=== PATIENT | female | born 1980 | race African-American/Black ===

== ENCOUNTER 2016-10-29 10:29 | Inpatient (IN) | payer OTHER ==
[~2016-10-29] VITALS: Ht 157.5 cm; Wt 64.6 kg
[2016-10-29] MEDS ORDERED: IBUP800T23 PO (10:53)
[2016-11-03] MEDS ORDERED: INSULIN HUMAN REGULAR 1,000 UNITS/10 ML VIAL SQ PRN (05:45)
[2016-11-03] MEDS ORDERED: METOPROLOL TARTRATE 25 MG TAB PO PRN (05:45)
[2016-11-03] MEDS ORDERED: SODIUM CHLORID 0.9% 500 ML IV SCH (05:45)
[2016-11-03] MEDS ORDERED: SODIUM CHLORIDE 0.9% INJ 100 ML ONE (05:59)
[2016-11-03] MEDS ORDERED: GENTAMICIN IV PRN (06:00)
[2016-11-03] MEDS ORDERED: SODIUM CHLORIDE 0.9% IV PRN (06:00)
[2016-11-03] MEDS ORDERED: CLINDAMYCIN 600 MG/NS 100 ML IV PRN ×2 (06:00)
[2016-11-03] MEDS: LACTATED RINGER'S 1000 ML IV SCH (06:09)
[2016-11-03 06:13] VITALS: BP 102/73; PULSE 60; RESP 16; TEMP 97.8; O2SAT 100
[2016-11-03] MEDS ORDERED: FAMOTIDINE 20 MG/2 ML VIAL ONE (07:06)
[2016-11-03] MEDS ORDERED: MICROFIBRILLAR COLLAGEN HEMOSTAT 1 GM PKT ONE (07:09)
[2016-11-03] MEDS ORDERED: GELATIN POWDER 1 GM PACKET ONE (07:10)
[2016-11-03] MEDS ORDERED: ceFAZolin INJ 1,000 MG VIAL ONE (07:10)
[2016-11-03] MEDS ORDERED: VASOPRESSIN INJ 20 UNITS/ML VIAL ONE (07:10)
[2016-11-03] MEDS ORDERED: SODIUM CHLOR 0.9% 250 ML INJ 250 ML ONE (07:10)
[2016-11-03] MEDS ORDERED: ACETAMINOPHEN 1000 MG/100 ML VIAL IV ONE (07:16)
[2016-11-03] MEDS ORDERED: DICLOFENAC SODIUM 37.5 MG/ML VIAL IV PUSH ONE (07:16)
[2016-11-03] MEDS ORDERED: MIDAZOLAM HCL 2 MG/2 ML VIAL ONE (07:22)
[2016-11-03] MEDS ORDERED: DEXAMETHASONE SOD PHOS 4 MG/ML VIAL ONE (07:22)
[2016-11-03] MEDS ORDERED: oxyCODONE/ACETAMINOPHEN 10 MG/325 MG TAB PO PRN (09:45)
[2016-11-03] MEDS ORDERED: LORazepam 0.5 MG TAB PO PRN (09:45)
[2016-11-03] MEDS ORDERED: ONDANSETRON HCL 4 MG/2 ML VIAL IV PUSH PRN (09:45)
[2016-11-03] MEDS ORDERED: diphenhydrAMINE HCL 50 MG/ML VIAL IV PRN ×2 (09:45)
[2016-11-03] MEDS ORDERED: oxyCODONE/ACETAMINOPHEN 5 MG/325 MG TAB PO PRN (09:45)
[2016-11-03] MEDS ORDERED: SODIUM CHLORIDE 0.9% FLUSH 5 ML FLUSH IVF PRN (09:45)
[2016-11-03] MEDS ORDERED: NALOXONE HCL 0.4 MG/ML AMP IV PRN (09:45)
[2016-11-03] MEDS ORDERED: ONDANSETRON ODT 4 MG TAB SL PRN (09:45)
[2016-11-03] MEDS ORDERED: ZOLPIDEM TARTRATE 5 MG TAB PO PRN (09:45)
[2016-11-03] MEDS ORDERED: diphenhydrAMINE HCL 25 MG CAP PO PRN ×2 (09:45)
[2016-11-03] MEDS ORDERED: MORPHINE SULFATE 30 MG/30 ML PCA IV SCH (09:45)
[2016-11-03] MEDS ORDERED: hydrOXYzine HCL 25 MG TAB PO PRN (09:45)
--- NOTE | 2016-11-03 09:49 | HHI.PR ---
Immediate Post Op Note Procedure Date: Nov 03, 2016 Pre Op Diagnosis: (1) Premenopausal menorrhagia (2) Uterine leiomyoma (3) Dyspareunia in female (4) Pelvic pain Post Op Diagnosis: (1) S/P total abdominal hysterectomy (2) Premenopausal menorrhagia (3) Uterine leiomyoma (4) Dyspareunia in female (5) Pelvic pain Surgeon: Oneyda Clark Captain Waiter(s): Neha staff Procedure: exploratory laparotomy, total abdominal hysterectomy, right salpingo- oophorectomy, left salpingectomy Findings: enlarged irregular multi-fibroid uterus, approx 16 week size; large posterior pedunculated fibroid attached to colon (superficially); right broad ligament fibroid involving right ovary and fallopian tube; normal cervix Complications: right broad ligament fibroid attached to right adnexa leading to right oophorectomy Specimen(s) removed: uterus, cervix, right fallopian tube, right ovary, left fallopian tube Estimated blood loss: 350 mL Anesthesia: General Drains: None Fluids: 2700 mL IVF Patient to: PACU Patient Condition: Good Oneyda Clark MD Nov 03, 2016 09:49
[2016-11-03] MEDS ORDERED: PILL SPLITTER OTHER PRN (10:00)
[2016-11-03] MEDS ORDERED: ACETAMINOPHEN 1000 MG/100 ML VIAL IV SCH ×2 (10:00→13:00)
[2016-11-03] MEDS ORDERED: DO NOT ADM ANY ANTICOAGULANT DRUGS XX PRN (10:00)
[2016-11-03] MEDS ORDERED: LACTATED RINGER'S 1000 ML INJ 1,000 ML IV ONE (10:11)
[2016-11-03] MEDS ORDERED: ONDANSETRON HCL 4 MG/2 ML VIAL IV PUSH ONE (10:11)
[2016-11-03] MEDS ORDERED: NEOSTIGMINE 3 MG/3 ML SYR IV ONE (10:11)
[2016-11-03] MEDS ORDERED: PROPOFOL 200 MG/20 ML AMP IV ONE (10:11)
[2016-11-03] MEDS: LACTATED RINGER'S 1000 ML INJ 1,000 ML IV SCH ×2 (10:25→21:37)
[2016-11-03] MEDS ORDERED: fentaNYL CITRATE 250 MCG/5 ML AMP ONE (10:28)
[2016-11-03] MEDS ORDERED: *MEPERIDINE 25 MG INJ VIAL PERIprocedural Use ONLY ONE (10:45)
[2016-11-03 12:40] VITALS: BP 97/66; PULSE 82; RESP 16; TEMP 97.7
[2016-11-03] MEDS ORDERED: KETOROLAC TROMETHAMINE 30 MG/ML (IVP) VIAL IV PUSH SCH (13:00)
[2016-11-03 13:53] LABS: RAPID PLASMA REAGIN SCREEN NON-REACTIVE (NON-REACTVE)
[2016-11-03] MEDS: PCA - TOTAL MG MORPHINE DELIVERED PER SHIFT SCH ×2 (14:00→22:00)
[2016-11-03 16:05] VITALS: BP 88/58; PULSE 78; RESP 16; TEMP 98.5; O2SAT 100
[2016-11-03 19:15] VITALS: BP 98/63; PULSE 86; RESP 18; TEMP 98.2; O2SAT 96
[2016-11-03] MEDS: SODIUM CHLORIDE 0.9% FLUSH 5 ML FLUSH IVF SCH (21:00)
[2016-11-03] MEDS: ACETAMINOPHEN 1000 MG/100 ML VIAL IV SCH (21:36)
[2016-11-03] MEDS: KETOROLAC TROMETHAMINE 30 MG/ML (IVP) VIAL IV PUSH SCH (21:36)
[2016-11-03] MEDS: DOCUSATE SODIUM 50 MG/SENNA 8.6 MG TAB PO SCH (21:36)
[2016-11-04] VITALS: BP 79/50; PULSE 90; RESP 16; TEMP 98.4; O2SAT 96
[2016-11-04 04:02] VITALS: BP 85/60; PULSE 80; RESP 16; TEMP 98.4; O2SAT 95
[2016-11-04] MEDS: ACETAMINOPHEN 1000 MG/100 ML VIAL IV SCH (04:04)
[2016-11-04] MEDS: KETOROLAC TROMETHAMINE 30 MG/ML (IVP) VIAL IV PUSH SCH (04:04)
[2016-11-04 05:08] LABS: AUTOMATED NEUTROPHIL # 7.1 TH/MM3 (1.8-7.7); BASOPHIL % 0.2 % (0.0-2.0); EOSINOPHIL % 0.1 % (0.0-4.0); HEMATOCRIT 28.2 % (35.0-46.0); HEMO FLAGS DIFF FINAL; LYMPH % 27.7 % (9.0-44.0); MEAN CELL VOLUME 83.6 FL (80.0-100.0); MEAN CORPUSCULAR HEMOGLOBIN 28.7 PG (27.0-34.0); MEAN CORPUSCULAR HGB CONC 34.3 % (32.0-36.0); MONO % 5.9 % (0.0-8.0); NEUT % 66.1 % (16.0-70.0); PLATELET COUNT 296 TH/MM3 (150-450); RED BLOOD COUNT 3.37 MIL/MM3 (4.00-5.30); RED CELL DISTRIBUTION WIDTH 15.2 % (11.6-17.2); WHITE BLOOD COUNT 10.7 TH/MM3 (4.0-11.0)
[2016-11-04] MEDS: LACTATED RINGER'S 1000 ML IV SCH (05:45)
[2016-11-04] MEDS: PCA - TOTAL MG MORPHINE DELIVERED PER SHIFT SCH (06:00)
[2016-11-04 08:00] VITALS: BP 107/65; PULSE 81; RESP 16; TEMP 98.4
--- NOTE | 2016-11-04 08:33 | HHI.PR ---
Subjective Remarks Doing well, pain is well controlled, tolerating clears. Has not yet been up to shower but voided this morning. Objective Vital Signs Vital Signs Date Time Temp Pulse Resp B/P Pulse Ox O2 Delivery O2 Flow Rate FiO2 11/04/16 06:00 16 11/04/16 04:02 98.4 80 16 85/60 95 11/04/16 00:00 98.4 90 16 79/50 96 11/03/16 22:00 16 11/03/16 19:15 98.2 86 18 98/63 96 11/03/16 16:05 98.5 78 16 88/58 100 11/03/16 14:00 16 11/03/16 12:40 97.7 82 16 97/66 11/03/16 12:15 75 16 104/70 98 Nasal Cannula 2 11/03/16 12:00 97.6 72 16 102/68 98 Nasal Cannula 2 11/03/16 11:45 73 15 101/65 97 Nasal Cannula 2 11/03/16 11:30 97.2 74 15 105/66 97 Nasal Cannula 2 11/03/16 11:15 71 15 104/69 97 Nasal Cannula 2 11/03/16 11:00 96.5 70 14 103/67 97 Nasal Cannula 2 11/03/16 10:45 78 13 102/64 96 Nasal Cannula 2 11/03/16 10:30 96.3 82 13 100/66 95 Nasal Cannula 2 11/03/16 10:25 15 11/03/16 10:15 84 12 98/65 100 Nasal Cannula 3 11/03/16 10:00 96.0 89 10 94/62 99 Nasal Cannula 3 I/O 11/03/16 11/03/16 11/03/16 11/04/16 11/04/16 11/04/16 07:00 15:00 23:00 07:00 15:00 23:00 Intake Total 2850 ml 1699 ml Output Total 610 ml 250 ml 2200 ml Balance 2240 ml -250 ml -501 ml Intake IV Total 150 ml 1699 ml Other 2700 ml Output Urine Total 260 ml 250 ml 2200 ml Estimated Blood Loss 350 ml Result Diagram: 11/04/16 0430 Objective Remarks Chest is clear, regular rate and rhythm. Abdomen is soft and non-distended. Bandage removed. Incision is clean and dry. Steri-strips removed. Ext no CCE. A/P Assessment and Plan Post Op Day 1 Doing well; advance diet, if tolerates diet & pain well controlled on oral meds ok to d/c to home later today. Return to office in one to two weeks for wound check. postop instructions given Oneyda Clark MD Nov 04, 2016 08:33
[2016-11-04] MEDS ORDERED: SENN1TAB PO (08:35)
[2016-11-04] MEDS ORDERED: OXYC1TAB36 PO (08:35)
[2016-11-04] MEDS ORDERED: IBUP-232 PO (08:35)
--- NOTE | 2016-11-04 08:40 | HHI.DS ---
Discharge Summary Admission Date Nov 03, 2016 at 05:23 Discharge Date: Nov 04, 2016 Admitting Diagnosis premenopausal menorrhagia enlarged multi-fibroid uterus dyspareunia pelvic pain in female (1) S/P total abdominal hysterectomy Diagnosis: Principal (2) Premenopausal menorrhagia Diagnosis: Principal (3) Uterine leiomyoma Diagnosis: Principal (4) Dyspareunia in female Diagnosis: Principal (5) Pelvic pain Diagnosis: Principal Procedures exam under anesthesia total abdominal hysterectomy right salpingo-oophorectomy left salpingectomy Brief History 36 yo with history of increasingly heavy painful cycles and anemia requiring IV iron transfusions. On imaging enlarged multi-fibroid uterus visualized. Pt desired definitive surgical management. CBC/BMP: 11/04/16 0430 Significant Findings Laboratory Tests Test 11/04/16 04:30 Red Blood Count 3.37 MIL/MM3 (4.00-5.30) Hemoglobin 9.7 GM/DL (11.6-15.3) Hematocrit 28.2 % (35.0-46.0) PE at Discharge NAD A&O x 3 CTA b/l no wheeze RRR no murmur soft, NTND, +BS incision c/d/i no c/c/e x 4 Hospital Course Pt had uncomplicated operative course, did well overnight POD#0 and by POD#1 was ambulating, voiding, tolerating diet. Once pain was well controlled on oral medications and pt was meeting all d/c criteria pt was discharged to home with office f/u in 1-2 weeks. Pt Condition on Discharge: Good Discharge Disposition: Discharge Home Discharge Instructions DIET: Follow Instructions for: As Tolerated, No Restrictions Activities you can perform: Partial Weight Bearing, Shower Only-No Bath, Pelvic Rest Activities to avoid: Strenuous Activity, Driving (for 2 weeks), Sexual Activity Oneyda Clark MD Nov 04, 2016 08:40
[2016-11-04] MEDS: SODIUM CHLORIDE 0.9% FLUSH 5 ML FLUSH IVF SCH (09:00)
[2016-11-04] MEDS ORDERED: IBUPROFEN 600 MG TAB PO PRN (09:45)
[2016-11-04] MEDS ORDERED: oxyCODONE/ACETAMINOPHEN 5 MG/325 MG TAB PO SCH (10:00)
[2016-11-04] MEDS ORDERED: IBUPROFEN 600 MG TAB PO SCH (10:00)
[2016-11-04] MEDS: DOCUSATE SODIUM 50 MG/SENNA 8.6 MG TAB PO SCH (10:01)
--- NOTE | 2016-11-06 10:07 | MP ---
cc: RAJ ROMAN M.D. DATE OF SURGERY: 11/03/2016 DATE OF : 1980 PREOPERATIVE DIAGNOSIS 1. Premenopausal menorrhagia 2. Enlarged multi fibroid uterus. 3. Dyspareunia. 4. Chronic pelvic pain. POSTOPERATIVE DIAGNOSIS 1. Premenopausal menorrhagia 2. Enlarged multi fibroid uterus. 3. Dyspareunia. 4. Chronic pelvic pain. 5. Postop day number zero. INDICATIONS Jyoti Randall is a 36-year-old 2, para 0-2-0-2 who has a history of worsening severely heavy and painful menstrual cycles as well as development of new pelvic pain and dyspareunia over the past few years. On imaging she had a diffusely enlarged multi fibroid uterus and she was symptomatic of anemia requiring iron transfusions despite medical management. Due to this she desired surgical management with hysterectomy. SURGERY PREFORMED: 1. Exploratory laparotomy 2. Total abdominal hysterectomy 3. Right salpingo-oophorectomy 4. Left salpingectomy. SURGEON Raj Roman MD. ANESTHESIA: General. ESTIMATED BLOOD LOSS 350 ml IV FLUID PLACEMENT: 2700 ml. URINE OUTPUT: 110 mls clear urine draining in the Chan bag at the end of the procedure. FINDINGS: Intraoperative findings include an enlarged 16 weeks size broad and irregularly shaped multi fibroid uterus, large pedunculated fibroid off the posterior wall was attached superficially to the colon. Right broad ligament fibroid involving the right adnexa and was adherent to the right ovary leading to its removal. The left ovary was within normal limits. Bilateral fallopian tubes had changes consistent with history of bilateral tubal ligation. Normal external genitalia , normal cervix. SPECIMEN Uterus, cervix, right ovary, right fallopian tube, left ovary. COMPLICATIONS Include a large broad ligament fibroid involving the right ovary leading to its removal. COUNTS: Counts of sponge, lap, instrument, and needle correct x2 at the conclusion of procedure. PROPHYLAXIS: SCDs were on and functioning throughout the entire case. Due to the patient's penicillin allergy, clindamycin and gentamicin IV were given preoperatively. PROCEDURE IN DETAIL After reviewing the informed consent the patient was taken to the operating suite where a time-out was performed to identify the patient, the planned procedure and any known allergies to drugs or drug products. The patient was placed in dorsal supine position and general anesthesia was administered without difficulty and found to be adequate. Abdomen and perineum were prepped and draped in normal sterile fashion. Chan catheter was placed using sterile technique. Pfannenstiel type skin incision was made with the scalpel, carried down to underlying layer of fascia with the Bovie. Fascia was incised in midline and incision was extended laterally with sharp dissection using Pedroza scissors. The superior aspect of the fascial incision was elevated with Connie clamps. Rectus muscles were dissected off sharply. Kochers then moved inferiorly and rectus muscles were again dissected off the fascia sharply with Pedroza scissors. Rectus muscles were in the midline. Peritoneum was identified, entered bluntly. Incision was extended superiorly and inferiorly with good visualization of intra-abdominal contents. Sterile moist lap sponges were used to pack the bowel out of the operative field. The self-retaining O'Giovanni-O'Lindo retractor was placed. Attention was turned first to the right round ligament which was elevated, doubly suture ligated with 0 Vicryl and divided. Metzenbaums scissors were used to develop a bladder flap anteriorly. A large right broad ligament fibroid was identified at this point it involved not only the broad ligament but also the right adnexa. Despite thorough dissection the right ovary was unable to be . A non-vascular space was found in the right broad ligament, this was entered sharply allowing delineation of the right infundibulopelvic ligament. Two curved Gabbie clamps were used to doubly clamped the right infundibulopelvic ligament. The vascular pedicle was divided and doubly suture ligated with 0 Vicryl with excellent hemostasis noted. Ovary and fallopian tube were on the specimen side. Additional delicate dissection of the mesosalpinx was performed to separate the fibroid from the rest of the pelvic peritoneum. It was gently dissected away from the right pelvic sidewall allowing visualization of the right ureter which was deepen and away from the operative field. Attention was then turned to the left round ligament which was elevated, doubly suture ligated with 0 Vicryl, and divided. Metzenbaum scissors were then used to open the mesosalpinx overlying the anterior uterus to develop a bladder flap anteriorly. A clear space was found in the broad ligament beneath the left infundibulopelvic ligament, this was entered sharply and two curved Gabbie clamps were used to doubly clamp the left utero-ovarian ligament allowing the left ovary to remain on its vascular pedicle and separate from the uterus. The pedicles was then divided and doubly suture ligated with 0 Vicryl. Excellent hemostasis was noted. The left fallopian tube was then elevated a Yosi clamp, clamped inferiorly with Cate clamp, and amputated from its vascular pedicle. Pedicle was then doubly suture ligated with 0 Vicryl with excellent hemostasis. Using a series of curved Gabbie clamps the uterine vasculature was then clamped, cut and suture ligated down to and beneath the level of the uterine cervix bilaterally using 0 Vicryl. Once the level of the cervix was reached and clamps had been placed bilaterally, Maxime scissors were used to amputate the specimen, which was then sent off the field for pathologic evaluation. Vaginal cuff was closed in a locked layer of #1 Vicryl, then a second running layer was placed for additional support. Uterosacral ligaments were incorporated into the closure. Irrigation with suction was performed. Excellent hemostasis was noted. Shreyas was placed over the sutured vaginal cuff. The retractor and lap sponges were removed. Peritoneum was closed in a running layer with 2-0 chromic. Fascia was closed in a running layer with #1 Vicryl. Subcutaneous tissue was irrigated copiously with warm sterile saline. Excellent hemostasis was noted. 4-0 Monocryl was used to close the skin in subcuticular fashion. Skin was cleaned and dried. Steri-Strips were placed as was a standard dressing. The procedure concluded at this point. The patient tolerated the procedure well. She awoke from anesthesia without complication. DISPOSITION The patient is resting in Post Anesthesia Care Unit. Her estimated length of stay is 1-2 postoperative days. MD LACEY Chambers/juan /9:52 AM /9:24 AM CHARLY
== END 2016-11-04 11:21 | disposition home or self-care (01) | DRG 743 ==
LOC: HSDI 11-03 05:23 → H1EA 11-03 12:26
PROVIDERS: ADMIT Obstetrics & Gynecology; ATTEND Obstetrics & Gynecology
PROC: 0UT70ZZ Resection of Bilateral Fallopian Tubes, Open Approach (ICD-10-PCS; 2016-11-03)
PROC: 0UT90ZZ Resection of Uterus, Open Approach (ICD-10-PCS; 2016-11-03)
PROC: 0UTC0ZZ Resection of Cervix, Open Approach (ICD-10-PCS; 2016-11-03)
PROC: 0UT00ZZ Resection of Right Ovary, Open Approach (ICD-10-PCS; principal; 2016-11-03 07:25)
DX: N92.4 Excessive bleeding in the premenopausal period (principal); D25.9 Leiomyoma of uterus, unspecified; N94.10 Unspecified dyspareunia; D28.2 Benign neoplasm of uterine tubes and ligaments; D64.9 Anemia, unspecified; G89.29 Other chronic pain; Z98.51 Tubal ligation status; Z88.0 Allergy status to penicillin
CPT/HCPCS: 80074; 85025; 86592; 86703; 86850; 86900; 86901; 88307; J0131; J0690; J1100; J1130; J1580; J1885; J2175; J2250; J2270; J2405; J2710; J3010; J7050; J7120

== ENCOUNTER → 2016-10-29 | Outpatient (CLI) | payer OTHER ==
[~2016-10-29] MED LIST: IBUP-232 PO; IBUP800T23 PO; OXYC1TAB36 PO; SENN1TAB PO
[2016-10-29 11:15] LABS: AUTOMATED NEUTROPHIL # 2.7 TH/MM3 (1.8-7.7); BASOPHIL # 0.1 TH/MM3 (0-0.2); BASOPHIL % 1.1 % (0.0-2.0); EOSINOPHIL % 0.9 % (0.0-4.0); HEMATOCRIT 36.2 % (35.0-46.0); HEMO FLAGS DIFF FINAL; LYMPH % 42.1 % (9.0-44.0); LYMPHOCYTE # 2.3 TH/MM3 (1.0-4.8); MEAN CELL VOLUME 85.2 FL (80.0-100.0); MEAN CORPUSCULAR HEMOGLOBIN 27.9 PG (27.0-34.0); MEAN CORPUSCULAR HGB CONC 32.7 % (32.0-36.0); MONO % 6.5 % (0.0-8.0); NEUT % 49.4 % (16.0-70.0); PLATELET COUNT 355 TH/MM3 (150-450); RED BLOOD COUNT 4.25 MIL/MM3 (4.00-5.30); RED CELL DISTRIBUTION WIDTH 15.4 % (11.6-17.2); WHITE BLOOD COUNT 5.5 TH/MM3 (4.0-11.0)
[2016-10-29 11:19] LABS: BLOOD, URINE MOD (NEG); GLUCOSE,URINE NEG (NEG); KETONE, URINE NEG (NEG); MUCUS URINE FEW /lpf (OCC); NITRITE,URINE NEG (NEG); PH, URINE 5.5 (5.0-8.5); SQUAMOUS EPITHELIAL CELL URINE 2 /hpf (0-5); URINE COLOR YELLOW (YELLW/STRAW)
[2016-10-29 11:48] LABS: ANION GAP 6 MEQ/L (5-15); BICARBONATE 28.5 MEQ/L (21.0-32.0); BLOOD UREA NITROGEN 11 MG/DL (7-18); CHLORIDE 106 MEQ/L (98-107); GLOMERULAR FILTRATION RATE 90 ML/MIN (>89); GLUCOSE,FASTING 67 MG/DL (74-99); POTASSIUM 4.3 MEQ/L (3.5-5.1); SODIUM (NA) 140 MEQ/L (136-145)
[2016-10-29 11:53] LABS: BHCG SCREEN QUALITATIVE LESS THAN 1 MIU/ML (0-5)
== END ==
LOC: CPRE 10:23
PROVIDERS: ATTEND Obstetrics & Gynecology
DX: Z01.812 Encounter for preprocedural laboratory examination (principal); D25.9 Leiomyoma of uterus, unspecified
CPT/HCPCS: 36415; 80048; 81001; 84703; 85025